=== PATIENT | male | born 1980 | race Two or more races ===

== ENCOUNTER 2024-08-19 09:15 | Emergency (ER) | payer MEDICAID, OTHER ==
[~2024-08-19] VITALS: Ht 185.4 cm; Wt 100.8 kg
[2024-08-19 11:38] VITALS: BP 116/74; PULSE 78; RESP 16; TEMP 98.7; O2SAT 98
[2024-08-19] MEDS: KETOROLAC TROMETH 30 MG/ML 1ML VIAL IM ONE (11:45)
--- NOTE | 2024-08-19 13:06 | DVH ---
CLINICAL INDICATION: elbow pain TECHNIQUE: XY L ELBOW 3 VIEW XRAY Comparison: None FINDINGS/IMPRESSION: : There is no evidence of acute fracture or dislocation. Soft tissues are unremarkable.
[2024-08-19] MEDS ORDERED: IBUP-1455 PO (13:17)
--- NOTE | 2024-08-19 13:18 | ED.PDOC ---
Musculoskeletal HPI Comments 44-year-old male presents with left elbow pain after he injured it one month at home. Notes hitting a wall and has been complaining of moderate pain since. Associated with mild swelling to the lateral epicondyle. Swelling started one week ago in his concerned about a possible fracture Chief Complaint: Upper Extremity Time Seen by MD: 10:57 Primary Care Provider: NONE Reviewed Notes: Nurses Notes, Medications, Allergies Allergies: Coded Allergies: NO KNOWN ALLERGIES (Unverified , 08/19/24) Home Meds Active Scripts Ibuprofen Micronized (Ibuprofen) 800 Mg Tab, 800 MG PO TID for 10 Days, #30 TAB 0 Refills Prov:ROCK GOLD CAFETERIA CASHIER 08/19/24 Information Source: Patient Mode of Arrival: Ambulatory All Other Systems: Reviewed and Negative (Per HPI) Physical Exam General Appearance: No Apparent Distress, Normal HEENT: Normal ENT Inspection, Pharynx Normal, TMs Normal Neck: Full Range of Motion, Non-Tender, Normal, Normal Inspection Respiratory: Chest Non-Tender, Lungs Clear, No Accessory Muscle Use, No Respiratory Distress, Normal Breath Sounds Cardiovascular: No Murmur, No Gallop, Regular Rate/Rhythm Breast Exam: Deferred Gastrointestinal: No Organomegaly, Non Tender, No Pulsatile Mass, Normal Bowel Sounds, Soft Genitalia: Deferred Pelvic: Deferred Rectal: Deferred Extremities: No calf tenderness, Normal capillary refill, Normal inspection, Normal range of motion, Non-tender, No pedal edema Musculoskeletal : Location: Left Extremity Location: Elbow (Mild swelling. no erythema) Apperance: Normal Neurologic: Alert, No Motor Deficits, Normal Affect, Normal Mood, No Sensory Deficits Cerebellar Function: Normal Reflexes: Normal Skin: Dry, Normal Color, Warm Lymphatic: No Adenopathy Was a procedure done? Was a procedure done?: No Differential Diagnosis EXT Differential Diagnosis: Fracture, Bursitis X-Ray, Labs, Meds, VS Vital Signs Date Time Temp Pulse Resp B/P (MAP) Pulse Ox O2 Delivery O2 Flow Rate FiO2 08/19/24 11:38 98.7 78 16 116/74 (88) 98 98.7 08/19/24 11:38 78 16 98 Room Air 08/19/24 09:26 97.2 78 16 112/62 (79) 97 Current Medications Medications (Trade) Dose Ordered Sig/Alicia Route Start Time Stop Time Status Last Admin Ketorolac Tromethamine (Toradol Injection) 30 mg ONCE ONCE IM 08/19/24 11:30 08/19/24 11:31 DC 08/19/24 11:45 X-Ray, Labs, Meds, VS Comment Well appearing, vitals wnl, non-toxic Concern for aseptic bursitis likely secondary to repetitive trauma. Low concern for fracture. No erythema. Consider less likely gout or arthritis No signs of septic bursa so patient and I agreed to a ice, trial of nsaids, elbow protection. Xray ordered without acute fracture or dislocation per my preliminary read Patient understands to return immediately for fever, redness, worsening symptoms, decreased mobility or any other concern Discussed the results with the patient and the patient vocalized understanding. Patient in agreement with the plan and all questions answered. I also discussed with the patient the limitations of the tests and of the workup performed today, including the chances of false negatives and that examination and treatment that they have received in the Emergency Department is not intended to be a substitute for an effort to provide complete medical care. The imaging, if any, have been interpreted on a preliminary basis pending final reading by the radiologistThe patient was instructed to return immediately to the ED if any changes or worsening of condition should occur.Stressed the importance of outpatient followup and strict return precautions. Time of 1ST Reevaluation: 13:00 Reevaluation 1ST: Improved Patient Education/Counseling: Diagnosis, Treatment Family Education/Counseling: Diagnosis, Treatment Departure 1 Departure Time of Disposition: 13:17 Impression: Primary Impression: Olecranon bursitis, left elbow Disposition: 01 HOME / SELF CARE / HOMELESS Condition: Stable e-Prescriptions Ibuprofen Micronized (Ibuprofen) 800 Mg Tab 800 MG PO TID for 10 Days, #30 TAB 0 Refills Prov: ROCK GOLD NP 08/19/24 Discharged With: Self Critical Care Note Critical Care Time?: No Stability Stability form required: No Heart Score Heart Score: Heart Score Response (Comments) Value History N/A 0 EKG N/A 0 Age N/A 0 Risk Factors N/A 0 Troponin N/A 0 Total 0 ROCK GOLD NP Aug 19, 2024 13:17
== END 2024-08-19 14:35 | disposition home or self-care (01) ==
LOC: ER 09:15
DX: M70.22 Olecranon bursitis, left elbow (principal); Z79.1 Long term (current) use of non-steroidal anti-inflammatories (NSAID); W22.01XA Walked into wall, initial encounter; Y93.89 Activity, other specified; Y92.89 Other specified places as the place of occurrence of the external cause; Y99.8 Other external cause status
CPT/HCPCS: 73080; 96372; 99283; J1885